=== PATIENT | female | born 1995 ===

== ENCOUNTER 2016-07-18 09:33 | Inpatient (IN) | payer OTHER ==
[2016-07-18 10:41] VITALS: BMI 36.5
[2016-07-18] MEDS: Lactated Ringer's 2,000 ML IV SCH ×2 (10:45→16:09)
[2016-07-18 11:20] LABS: HEMATOCRIT 36.6 % (34.0-47.0); MEAN CELL VOLUME 77.9 fl (81.0-99.0); MEAN CORPUSCULAR HEMOGLOBIN 24.8 pg (27.0-31.0); MEAN CORPUSCULAR HGB CONC 31.9 g/dL (33.0-37.0); RED CELL DISTRIBUTION WIDTH 15.2 % (11.5-14.5); WHITE BLOOD COUNT 12.8 K/uL (4.8-10.8)
[2016-07-18 11:24] LABS: ALB/GLOB RATIO 0.9 (1.0-2.1); ALKALINE PHOSPHATASE 272 U/L (38-126); ALT/SGPT 29 U/L (9-52); AST/SGOT 28 U/L (14-36); BILIRUBIN,TOTAL 0.7 mg/dl (0.2-1.3); BLOOD UREA NITROGEN 6 mg/dl (7-17); CALCIUM 9.5 mg/dL (8.4-10.2); CARBON DIOXIDE 24 mmol/L (22-30); CHLORIDE 103 mmol/L (98-107); GFR AFRICAN-AMERICAN > 60; GLUCOSE,RANDOM 82 mg/dL (65-105); POTASSIUM 4.1 MMOL/L (3.6-5.0); SODIUM 139 mmol/l (132-148)
[2016-07-18] MEDS: Ampicillin 2 GM in Sodium Chloride 0.9% 100 ML IVPB ONE ×2 (12:20→12:25)
[2016-07-18] MEDS ORDERED: Lactated Ringer's 1,000 ML IV SCH ×2 (13:15→19:28)
[2016-07-18] MEDS ORDERED: Oxytocin 30 units/LR 500ML 500 ML IV ONE (13:50)
[2016-07-18] MEDS ORDERED: Fentanyl/Bupivacaine HCl 250 ML EPI ONE (15:05)
[2016-07-18] MEDS ORDERED: AMPicillin 1 GM in Sodium Chloride 0.9% 100 ML IVPB SCH (17:00)
[2016-07-18 17:18] VITALS: BP 107/63; PULSE 91; RESP 18; TEMP 98.1; O2SAT 100
[2016-07-18] MEDS ORDERED: Oxycodone/Acetaminophen 5/325 mg Tab PO SCH ×2 (22:00)
[2016-07-19 07:55] LABS: BASO % 0.2 % (0.0-2.0); EOS % 0.2 % (0.0-4.0); HEMATOCRIT 27.3 % (34.0-47.0); LYMPH # 2.8 K/uL (1.0-4.3); LYMPH % 21.4 % (20.0-40.0); MEAN CELL VOLUME 77.8 fl (81.0-99.0); MEAN CORPUSCULAR HEMOGLOBIN 25.3 pg (27.0-31.0); MEAN CORPUSCULAR HGB CONC 32.4 g/dL (33.0-37.0); MEAN PLATELET VOLUME 10.4 fl (7.2-11.7); MONO # 0.6 K/uL (0.0-0.8); MONO % 4.9 % (0.0-10.0); NEUT # 9.6 K/uL (1.8-7.0); NEUT % 73.3 % (50.0-75.0); NRBC % 0.1 % (0.0-0.0); RED CELL DISTRIBUTION WIDTH 15.3 % (11.5-14.5); WHITE BLOOD COUNT 13.1 K/uL (4.8-10.8)
[2016-07-19] MEDS ORDERED: TDAP Vaccine 0.5 mL Syr IM ONE (09:00)
[2016-07-19] MEDS ORDERED: Multivitamin With Minerals Tab PO SCH (09:00)
[2016-07-19] MEDS: Multivitamin With Minerals Tab PO SCH (09:15)
[2016-07-19] MEDS ORDERED: Influenza Vaccine(5yr & older) 0.5 ML/45 MCG IM ONE (15:00)
[2016-07-19] MEDS ORDERED: Docusate-Senna 50 mg-8.6 mg Tab PO SCH (22:00)
[2016-07-20] MEDS: Multivitamin With Minerals Tab PO SCH (09:34)
--- NOTE | 2016-07-20 19:26 | OBPPN ---
Datetime: 07/20/2016 06:10 PP Pain Prov: Within normal limits PP Nausea Prov: Denies PP Flatus Prov: Yes PP BM Prov: Yes PP Breasts Prov: Normal PP Heart Prov: Normal PP Lungs Prov: Normal PP Abdomen/Uterus Prov: Normal PP Lochia Prov: Normal PP Vulva/Perineum Prov: Normal PP CVA Tenderness Prov: Normal PP Extremities Prov: Normal PP C/S Incision Prov: Not Applicable PP Progress Prov: Normal PP Comments Phys Exam Prov: No acute distress. Comfortable in bed. Lungs CTA b/l. RRR S1S2. Abd: soft, uterus below umb level firm. +BS no calf tenderness Alert, oriented PP Impression Prov: Normal progression PP Plan Prov: Continue present management; Discharge PP Progress Note Prov: PPD2 Patient seen at bedside on PPD2 s/p NVD. Denies nausea, vomiting or headache. Lochia less than men ses, pain is controlled with motrin. + Flatus and + BM. Voiding with no difficulty. Ambulating with n o difficulty. Tolerating PO. Denies calf pain. O:See above A: 20 y/o S/P NVD on PPD2 normal progression P: Cont Motrin PRN for pain Reg diet Encourage ambulation Anticipated DC today Kurt Millard PGY1 OB[facility] ADDENDUM: Pt seen _ examined by me. Agree with above assessment and plan. IP PP Procedures: None Vital Signs Provider PP: Reviewed; Within Normal Limits
--- NOTE | 2016-07-20 19:28 | OBDCSUM ---
Datetime: 07/20/2016 14:58 Discharged to, Provider: Home Follow up at, Provider: [facility] Disch Instr Activity: Normal activity; May be up to bathroom; May be up for meals; May Shower Disch Instr Diet: Regular Discharge Instructions, Provider: Routine instructions given Discharge Diagnosis, Provider: Term Delivered Discharge Time: 07/20/2016 16:00 Follow up in weeks, Provider: 6 weeks Disch Referrals: None Contraception discussed, Prov: No Disch Activity Restrictions: No lifting; No sexual activity; Nothing in vagina - [place], tampon s, douche
== END 2016-07-20 15:00 | disposition home or self-care (01) | DRG 373 ==
LOC: H.EROB2 09:33 → H.L&D 10:45 → H.OB/GYN 21:00
PROVIDERS: ADMIT Obstetrics & Gynecology Gynecology; ATTEND Obstetrics & Gynecology Gynecology
PROC: 10E0XZZ Delivery of Products of Conception, External Approach (ICD-10-PCS; principal; 2016-07-18)
PROC: 4A1HXCZ Monitoring of Products of Conception, Cardiac Rate, External Approach (ICD-10-PCS; 2016-07-18)
PROC: 3E0234Z Introduction of Serum, Toxoid and Vaccine into Muscle, Percutaneous Approach (ICD-10-PCS; 2016-07-19)
DX: O80 Encounter for full-term uncomplicated delivery (principal); Z23 Encounter for immunization; Z3A.37 37 weeks gestation of pregnancy; Z37.0 Single live birth

== ENCOUNTER 2017-06-09 03:21 | Observation (INO) | payer MEDICAID, OTHER ==
[2017-06-09 04:08] VITALS: BMI 37.5
[2017-06-09] MEDS ORDERED: Betamethasone Soluspan 30 mg/5mL Inj Susp IM ONE (04:09)
--- NOTE | 2017-06-09 04:16 | OBHP ---
Datetime: 06/09/2017 04:09 IP Adm Impression: No Active Labor; Intact Membranes IP Admit Plan: Observation/Evaluation Admit Comment, IP Provider: 21-year-old at 34 weeks and 1 day gestational age based on stated SANDY. Patient complains of contractions that started earlier today. Patient denies any vaginal bleedin g or leakage of fluids. Patient reports good movement. Patient has had very little car e. Patient states that she had ultrasound done around 25 weeks that gave her her stated due date. Tamy epps has very little records to review. Past medical history denies Past surgical history denies Medications vitamins No known drug allergies Obstetrical history patient reports uncomplicated vaginal delivery 2 Social history patient denies alcohol, tobacco, drug use Physical exam: Physical exam findings Fundal height consistent with 34-35 gestational age Bedside ultrasound Vertex presentation Assessment: 21-year-old at 34 weeks 1 day gestational age based on stated date and EDC. Patient likely i n labor due to physical exam and presentation. Plan: Initial obstetrical ultrasound to determine gestational age IV hydration labs, UA Administer dose of betamethasone due to likely pre-term status and possible labor Discussed plan with the patient and all patient questions answered. Pelvic Type - PN: Adequate Extremities - PN: Normal Abdomen - PN: Normal Back - PN: Normal Neurologic - PN: Normal HEENT - PN: Normal General - PN: Normal FHR - Baseline A Provider: 130s Contraction Comments Provider: q3-4min EGA AdmitDate IP: 34.1 Vital Signs Provider: Reviewed; Within Normal Limits IP Chief Complaint: Uterine contractions NICHD Variability Prov Fetus A: Moderate 6-25bpm NICHD Accel Fetus A IP Provider: [id number] FHR Category Provider Fetus A: Category I NICHD Decel Fetus A IP Provider: None Dilatation, Provider: 0 Effacement, Provider: 50 Station, Provider: -2 Genitourinary Exam: Normal
[2017-06-09] MEDS: Lactated Ringer's 1,000 ML IV SCH ×2 (04:25→11:48)
[2017-06-09 04:53] LABS: SQUAMOUS EPITHIAL 22 /hpf (0-5); URINE BACTERIA MANY (<OCC); URINE BILIRUBIN NEGATIVE (NEGATIVE); URINE BLOOD NEGATIVE (NEGATIVE); URINE CLARITY CLOUDY (Clear); URINE COLOR YELLOW (YELLOW); URINE GLUCOSE (UA) NEG (Normal); URINE LEUKOCYTE ESTERASE SMALL Leu/uL (Negative); URINE NITRATE NEGATIVE (NEGATIVE); URINE PROTEIN NEGATIVE (NEGATIVE); URINE UROBILINOGEN 0.2-1.0 mg/dL (0.2-1.0)
[2017-06-09 04:56] LABS: HEMOGLOBIN 10.1 g/dL (12.0-16.0); MEAN CORPUSCULAR HEMOGLOBIN 24.9 pg (27.0-31.0); MEAN CORPUSCULAR HGB CONC 31.5 g/dL (33.0-37.0); RBC 4.06 Mil/uL (3.80-5.20); RED CELL DISTRIBUTION WIDTH 15.7 % (11.5-14.5)
[2017-06-09 05:23] LABS: BARBITURATES, UR NEGATIVE (NEGATIVE); BENZODIAZEPINES, UR NEGATIVE (NEGATIVE); OPIATES, UR NEGATIVE (NEGATIVE); PHENCYCLIDINE, UR NEGATIVE (NEGATIVE)
--- NOTE | 2017-06-09 06:18 | US ---
EXAM: US Biophysical Profile Without Non-Stress Testing CLINICAL HISTORY: 21 years old, female; Pain; Pain indication: Pelvic pain; ; Additional info: Rule out labor TECHNIQUE: Real-time ultrasound of the maternal pelvis for biophysical profile evaluation with image documentation. 7 Real time cine loop images are submitted. COMPARISON: No relevant prior studies available. FINDINGS: breathing movements: Present. Score 2/2. Gross body movements: Present. Score 2/2. tone: Present. Score 2/2. Qualitative amniotic fluid volume: There's an adequate amount of amniotic fluid. The amniotic fluid index is 15.6 cm which is normal. Fetus: There is motion. The average ultrasound age was measured at 35 weeks and 0 days. Heart rate: The heart rate was measured at 144 beats per minute. Presentation: There is a silva fetus in the cephalic presentation. Placenta: The placenta is fundal in location. No placenta previa. Anatomy: organs: Four-chamber heart. Cervix: The cervix is closed and measures 6.2 cm. Other findings: The biophysical profile is 8 out of 8. There is respiratory motion. IMPRESSION: No acute findings. Normal biophysical profile.
[2017-06-09] MEDS: Lactated Ringer's 1,000 ML IV PRN ×2 (06:40→13:38)
[2017-06-09] MEDS ORDERED: Nalbuphine 20 mg/ml Inj (1 ml) IVP PRN (10:34)
[2017-06-09] MEDS ORDERED: Nalbuphine 20 mg/ml Inj (1 ml) ONE (10:43)
[2017-06-09 20:08] LABS: ALB/GLOB RATIO 0.9 (1.0-2.1); ALBUMIN 3.5 g/dL (3.5-5.0); ALT/SGPT 20 U/L (9-52); AMYLASE 72 U/L (30-110); AST/SGOT 20 U/L (14-36); BLOOD UREA NITROGEN 3 mg/dl (7-17); CALCIUM 9.4 mg/dL (8.4-10.2); GFR AFRICAN-AMERICAN > 60; GFR NON-AFRICAN AMERICAN > 60; LIPASE 66 U/L (23-300)
[2017-06-09 20:38] LABS: SQUAMOUS EPITHIAL 2 /hpf (0-5); URINE BACTERIA RARE (<OCC); URINE BILIRUBIN NEGATIVE (NEGATIVE); URINE BLOOD NEGATIVE (NEGATIVE); URINE CLARITY SLIGHTY-CLOUDY (Clear); URINE COLOR YELLOW (YELLOW); URINE GLUCOSE (UA) NEG (Normal); URINE LEUKOCYTE ESTERASE NEG Leu/uL (Negative); URINE NITRATE NEGATIVE (NEGATIVE); URINE PROTEIN NEGATIVE (NEGATIVE); URINE UROBILINOGEN 0.2-1.0 mg/dL (0.2-1.0)
[2017-06-09] MEDS ORDERED: Nalbuphine 20 mg/ml Inj (1 ml) IVP ONE (23:28)
[2017-06-10] MEDS: Lactated Ringer's 1,000 ML IV PRN ×2 (00:21→09:29)
[2017-06-10] MEDS ORDERED: Betamethasone Soluspan 30 mg/5mL Inj Susp IM ONE (04:32)
[2017-06-10] MEDS ORDERED: POLYETHYLENE GLYCOL 3350 17 GM/Dose PACKET PO ONE (05:52)
--- NOTE | 2017-06-10 06:02 | OBPN ---
Datetime: 06/10/2017 05:55 IP Progress Impression Other: Maternal discomfort IP Procedures: Sterile Speculum Exam Membranes, Provider: Intact FHR - Baseline A Provider: 140's IP Progress Note Comment: 21 yo at 34+2 wks w/ c/o pain in left flank and up to her chest, r eports that last BM was on Sat and was hard. Pt's VE unchanged. Pt is s/p Betamethasone x 2 doses for FLM. Pt to eat regular diet this am and MiraLax ordered. NICHD Accel Fetus A IP Provider: 15X15 FHR Category Provider Fetus A: Category I NICHD Variability Prov Fetus A: Moderate 6-25bpm Dilatation, Provider: 1 Effacement, Provider: 50 Station, Provider: -3 NICHD Decel Fetus A IP Provider: None Datetime: 06/09/2017 04:09 Contraction Comments Provider: q3-4min Vital Signs Provider: Reviewed; Within Normal Limits
[2017-06-10 08:11] LABS: MEAN CELL VOLUME 77.8 fl (81.0-99.0); MEAN CORPUSCULAR HEMOGLOBIN 25.1 pg (27.0-31.0); MEAN CORPUSCULAR HGB CONC 32.3 g/dL (33.0-37.0); RBC 3.6 Mil/uL (3.80-5.20); RED CELL DISTRIBUTION WIDTH 15.8 % (11.5-14.5); WHITE BLOOD COUNT 17.8 K/uL (4.8-10.8)
--- NOTE | 2017-06-10 13:14 | US ---
PROCEDURE: Ultrasound of the Kidneys HISTORY: Left flank pain at 34 weeks COMPARISON: None available. TECHNIQUE: Grayscale imaging was performed. FINDINGS: RIGHT KIDNEY: Measures: 13.1 cm. Normal in size, contour and echogenicity. No stone, solid mass lesion or hydronephrosis visualized. LEFT KIDNEY: Measures: 13.6 cm. Normal in size, contour and echogenicity. No stone, solid mass lesion or hydronephrosis visualized. OTHER FINDINGS: None. IMPRESSION: Normal examination.
[2017-06-10 17:00] VITALS: BP 125/47; TEMP 98.8
[2017-06-10 17:04] LABS: BASO % 0.1 % (0.0-2.0); HEMOGLOBIN 9.1 g/dL (12.0-16.0); MEAN CORPUSCULAR HEMOGLOBIN 24.3 pg (27.0-31.0); MEAN CORPUSCULAR HGB CONC 30.7 g/dL (33.0-37.0); MEAN PLATELET VOLUME 9.9 fl (7.2-11.7); MONO # 0.6 K/uL (0.0-0.8); MONO % 3.2 % (0.0-10.0); NEUT # 17.5 K/uL (1.8-7.0); NEUT % 91.7 % (50.0-75.0); PLATELET COUNT 216 K/uL (130-400); RBC 3.73 Mil/uL (3.80-5.20); RED CELL DISTRIBUTION WIDTH 16.2 % (11.5-14.5)
[2017-06-10 17:18] LABS: ALB/GLOB RATIO 0.9 (1.0-2.1); ALBUMIN 3.5 g/dL (3.5-5.0); ALT/SGPT 22 U/L (9-52); AST/SGOT 26 U/L (14-36); BLOOD UREA NITROGEN 3 mg/dl (7-17); CALCIUM 9.2 mg/dL (8.4-10.2); GFR AFRICAN-AMERICAN > 60; GFR NON-AFRICAN AMERICAN > 60
[2017-06-10 17:38] LABS: LYMPHOCYTE 7 % (20-50); MONOCYTE 1 % (0-10); NEUTROPHIL 92 % (42-75); TOTAL CELLS COUNTED 100
[2017-06-10 17:39] LABS: ANISOCYTOSIS SLIGHT; POIKILOCYTOSIS SLIGHT
[2017-06-10 17:40] LABS: HYPOCHROMIC SLIGHT; MICROCYTOSIS SLIGHT; POLYCHROMIC SLIGHT
[2017-06-10 17:41] LABS: ACANTHOCYTES SLIGHT; OVALOCYTES SLIGHT
[2017-06-10 17:42] LABS: HYPERSEGMENTATION PRESENT; TARGET CELLS SLIGHT
[2017-06-10 17:43] LABS: PLATELET ESTIMATE NORMAL (NORMAL)
--- NOTE | 2017-06-10 17:47 | OBPN ---
Datetime: 06/10/2017 17:29 IP Progress Plan: Discharge FHR - Baseline A Provider: 150 IP Progress Note Comment: Pt underwent renal u/s this morning; normal examination, no evidence of st ones. Continued to have abdominal pain with mild rebound. Multiple attempts for PO intake were made, pt gagged/vomitted and was unable to tolerate it. Did not have any diarrhea, no evidence of blood in vom it. Abdominal u/s was ordered for working dx of appendicitis. She was noted to have a Tmax of 100.8, which was responsive to tylenol. She was given nexium 40 mg IV; subsequently pain resolved and pt was able to tolerate PO intake. CBC showed elevated WBC, leftward shift, predominant neutrophils. Pt received steroids for lung maturation over the last 2-3 days which contributes to white c ount, and predominant neutrophilia suggests pt exposed to bacteria. Pt remained afebrile after tylenol; was afebrile at discharge. She has follow up appt scheduled next week; it was strongly suggested to her that she be seen in t he clinic this week within 2-3 days. Pt given labor precautions at discharge. Discussed w/ Dr. Duggan. [email or web address] Addendum by Dr. Duggan: I have evaluated the patient and was taking care of the patient throughout the day. Patient discharged home, ruled out for labor, appendicitis. labor precaution s given, F/U in clinic this week NICHD Accel Fetus A IP Provider: 15X15 NICHD Variability Prov Fetus A: Moderate 6-25bpm Dilatation, Provider: 2 Effacement, Provider: 50 Station, Provider: -3
--- NOTE | 2017-06-10 17:52 | OBDCSUM ---
Datetime: 06/10/2017 17:23 Discharged to, Provider: Home Follow up at, Provider: [facility] Disch Instr Activity: Normal activity Disch Instr Diet: Regular Discharge Time: 06/10/2017 17:24 Follow up in weeks, Provider: this week for follow up Disch Referrals: None Discharge Diagnosis Prov Other: abdominal pain in
[2017-06-11 03:53] VITALS: PULSE 105; RESP 16; O2SAT 98
== END 2017-06-10 17:24 | disposition home or self-care (01) ==
LOC: H.EROB2 03:21 → H.L&D 16:24
PROVIDERS: ADMIT Obstetrics & Gynecology; ATTEND Obstetrics & Gynecology
DX: O99.613 Diseases of the digestive system complicating pregnancy, third trimester (principal); Z3A.34 34 weeks gestation of pregnancy; K37 Unspecified appendicitis; O60.03 Preterm labor without delivery, third trimester
CPT/HCPCS: 76770; 76815; 76818; 80053; 80324; 80345; 80346; 80349; 80353; 80358; 80361; 81003; 82150; 83690; 83992; 85025; 85027; 86592; 86850; 86900; 87086; 87390; 96361; 96372; 96374; 96375; 96376; 99285; C9113; G0378; J0702; J2405; J7120

== ENCOUNTER 2017-07-10 19:13 | Inpatient (IN) | payer MEDICAID, OTHER ==
[2017-07-10] MEDS ORDERED: Lactated Ringer's 1,000 ML IV SCH (20:00)
[2017-07-10] MEDS: Lactated Ringer's 1,000 ML IV SCH ×2 (20:07→21:18)
[2017-07-10 20:40] LABS: BASO % 0.3 % (0.0-2.0); EOS % 0.3 % (0.0-4.0); LYMPH # 2.4 K/uL (1.0-4.3); LYMPH % 22.8 % (20.0-40.0); MEAN CORPUSCULAR HEMOGLOBIN 24.3 pg (27.0-31.0); MEAN CORPUSCULAR HGB CONC 31.9 g/dL (33.0-37.0); MEAN PLATELET VOLUME 10.7 fl (7.2-11.7); MONO # 0.4 K/uL (0.0-0.8); MONO % 3.9 % (0.0-10.0); NEUT # 7.6 K/uL (1.8-7.0); NEUT % 72.7 % (50.0-75.0); RBC 4.52 Mil/uL (3.80-5.20); RED CELL DISTRIBUTION WIDTH 17.6 % (11.5-14.5); WHITE BLOOD COUNT 10.4 K/uL (4.8-10.8)
[2017-07-10] MEDS ORDERED: fentaNYL 250 MCG, Bupivacaine HCl 0.5% 31.25 ML in Sodium Chloride 0.9% 88.75 ML EPI ONE (21:44)
[2017-07-10] MEDS ORDERED: Penicillin G 5 Million Unit Vial IVPB ONE (21:50)
[2017-07-10] MEDS ORDERED: Bupivacaine HCl 0.25% PF (10 ml) Inj ONE (21:55)
[2017-07-10] MEDS: Oxytocin 30 units/LR 500ML 30 U/500 ML BAG IV ONE (22:02)
--- NOTE | 2017-07-10 22:37 | OBDS ---
MATERNAL INFORMATION Provider Comments: Delivered live baby boy at 2157 the baby was bulb suctioned on the perineum and t ransferred to the maternal chest cord was clamped and cut 3 vessels noted cord blood was obtained and sent to the lab. Placenta was delivered at 2202 intact, the estimated blood loss 150 mL. The mother tolerated the procedure well there were no vaginal lacerations the baby went to the well baby nursery with Apgars of 9 and 9 LABOR SUMMARY EDC: 07/20/2017 00:00
[2017-07-11] MEDS ORDERED: Oxycodone/Acetaminophen 5/325 mg Tab PO PRN (01:50)
[2017-07-11] MEDS ORDERED: Lactated Ringer's 1,000 ML IV SCH (04:06)
[2017-07-11 06:45] LABS: HEMOGLOBIN 9.2 g/dL (12.0-16.0); MEAN CELL VOLUME 75.6 fl (81.0-99.0); MEAN CORPUSCULAR HEMOGLOBIN 24.3 pg (27.0-31.0); MEAN CORPUSCULAR HGB CONC 32.2 g/dL (33.0-37.0); RBC 3.79 Mil/uL (3.80-5.20); RED CELL DISTRIBUTION WIDTH 17.5 % (11.5-14.5); WHITE BLOOD COUNT 13.4 K/uL (4.8-10.8)
[2017-07-11] MEDS: Oxycodone/Acetaminophen 5/325 mg Tab PO PRN (08:41)
--- NOTE | 2017-07-11 10:17 | OBPPN ---
Datetime: 07/11/2017 07:45 PP Pain Prov: Within normal limits PP Nausea Prov: Denies PP Flatus Prov: Yes PP BM Prov: No PP Heart Prov: Normal PP Lungs Prov: Normal PP Abdomen/Uterus Prov: Normal PP Lochia Prov: Normal PP CVA Tenderness Prov: Normal PP Extremities Prov: Normal PP Progress Prov: Normal PP Impression Prov: Normal progression PP Plan Prov: Continue present management PP Progress Note Prov: 21 y/o F now , s/p on 06/12/17. Pt reports feeling well. Pelvic eric n is well controlled with medication. Pt afebrile, tolerating PO, has good appetite with NO acute chen nts overnight. Pt able to ambulate. Pt voiding with no issues, passing gases but NO bowel movement ye t. Pt with NO difficulties. Lochia described as sames as menses. Pt denies headache, d izziness, CP, SOB, N/V or calf tenderness All systems reviewed and negative except as above. O: PE: -Gen: A_O, resting comfortably on bed, NAD. -Lungs: CTAB, No W/R/R. -CV: RRR, S1 and S2 present. -ABD: soft, BS +, firm fundus below umbilicus. -EXT: No cyanosis, non-tender calves. A/P: 21 y/o F on PPD 1, stable, recovering well from --Continue with post- management. -- and ambulation encouraged. --Anticipated discharge 07/12/17. Case discussed with On pony roll finisher OB Hospitalist Addendum: Pt seen and examined by me. Agree a/ above. PPD1 s/p , doing well, b reast feeding. Continue current care. (ES) IP PP Procedures: None
[2017-07-12] MEDS: Oxycodone/Acetaminophen 5/325 mg Tab PO PRN (10:08)
--- NOTE | 2017-07-12 10:32 | OBPPN ---
Datetime: 07/12/2017 07:02 PP Pain Prov: Within normal limits PP Nausea Prov: Denies PP Flatus Prov: Yes PP BM Prov: Yes PP Breasts Prov: Not Done PP Heart Prov: Normal PP Lungs Prov: Normal PP Abdomen/Uterus Prov: Normal PP CVA Tenderness Prov: Normal PP Extremities Prov: Normal PP C/S Incision Prov: Not Applicable PP Progress Prov: Normal PP Impression Prov: Normal progression PP Plan Prov: Discharge PP Progress Note Prov: 21 y/o F now , s/p on 07/10/17. Pt reports feeling well. Pelvic eric n is well controlled with medication. Pt afebrile, tolerating PO, has good appetite with NO acute chen nts overnight. Pt able to ambulate. Pt voiding with no issues, passing gases and had a bowel movement . Pt with NO difficulties. Lochia described as same as menses. Pt denies headache, dizz iness, CP, SOB, N/V or calf tenderness All systems reviewed and negative except as above. O: PE: -Gen: A_O, resting comfortably on bed, NAD. -Lungs: CTAB, No W/R/R. -CV: RRR, S1 and S2 present. -ABD: soft, BS +, firm fundus below umbilicus. -EXT: No cyanosis, non-tender calves. A/P: 21 y/o F on PPD 2, stable, recovering well from --Discharge home today. --F/U with PCP in 6 weeks for post- examination. -- and ambulation encouraged. --Post- care instructions reviewed with pt. --ER precautions discussed with pt. Case discussed with OB telephone answerer Laura PGY-1 OB Hospitalist on-call. Pt seen and examined on rounds 10am...agree wtih PGY1 note...REBECCA IP PP Procedures: None Vital Signs Provider PP: Reviewed
--- NOTE | 2017-07-12 10:32 | OBDCSUM ---
Datetime: 07/12/2017 07:04 Discharged to, Provider: Home Follow up at, Provider: [facility] Disch Instr Activity: Normal activity; May be up to bathroom; May be up for meals; May Shower Disch Instr Diet: Regular Discharge Instructions, Provider: Routine instructions given Discharge Diagnosis, Provider: Term Delivered Discharge Time: 07/12/2017 07:04 Follow up in weeks, Provider: 6 weeks Disch Referrals: None Disch Activity Restrictions: No lifting; No driving; Minimize stair-climbing; No sexual activity; No thing in vagina - [place], tampons, douche Discharge Comment, Provider: --F/U with PCP in 6 weeks for post- examination. -- and ambulation encouraged. --Post- care instructions reviewed with pt. --ER precautions discussed with pt. OB Hospitalist on-call. Pt seen and examined on rounds 10am...agree wtih PGY1 note...REBECCA
[2017-07-12 22:59] VITALS: BP 115/55; PULSE 97; RESP 20; TEMP 98.6; O2SAT 100
== END 2017-07-12 13:30 | disposition home or self-care (01) | DRG 373 ==
LOC: H.EROB2 19:13 → H.L&D 20:00 → H.OB/GYN 07-11 02:00
PROVIDERS: ADMIT Obstetrics & Gynecology Gynecology; ATTEND Obstetrics & Gynecology Gynecology
PROC: 10E0XZZ Delivery of Products of Conception, External Approach (ICD-10-PCS; principal; 2017-07-10)
PROC: 4A1HXCZ Monitoring of Products of Conception, Cardiac Rate, External Approach (ICD-10-PCS; 2017-07-10)
DX: O80 Encounter for full-term uncomplicated delivery (principal); Z37.0 Single live birth; Z3A.38 38 weeks gestation of pregnancy